=== PATIENT | female | born 1960 | race Caucasian/White ===

== ENCOUNTER 2019-01-30 13:34 | Observation (INO) | payer OTHER ==
[~2019-01-30] VITALS: Ht 165.1 cm; Wt 74.6 kg
[~2019-01-30 13:34] MED LIST: SYMBICORT 160-4.6 GM; Z.0.EFFEXOR75 MG; Z.0.LEVOTHROID50 MCG; Z.0.ZESTRIL5 MG
--- OUTSIDE RECORDS SUMMARY | 2019-01-30 13:37 | XMS REPORT | Encounter Summary ---
Author Organization Unknown Address [address] [place] [address] Phone [phone] Reason for Visit Medical Complaint Instructions 1. Streptococcal sore throat rapid strep group A, throat strep throat: care instructions azithromycin 250 mg tablet Lidocaine Viscous 2 % mucosal solution 2. Body mass index 25-29 - overweight Discussion Note Pt. is NAD. Take medications as prescribed; f/u with PCP within 2-3 days should symptoms worsen as discussed. ER precautions and Care instructions given. Verbalized all instructions. No further questions upon d/c. Plan of Care Patient Instructions Take your antibiotics as directed. Do not stop taking them just because you feel better. You need to take the full course of antibiotics. Strep throat can spread to others until 24 hours after you begin taking antibiotics. During this time, you should avoid contact with other people at work or home, especially infants and children. Do not sneeze or cough on others, and wash your hands often. Keep your drinking glass and eating utensils separate from those of others, and wash these items well in hot, soapy water. Gargle with warm salt water at least once each hour to help reduce swelling and make your throat feel better. Use 1 teaspoon of salt mixed in 8 fluid ounces of warm water. Take an mjql-alj-thmybxk pain medication, such as acetaminophen (Tylenol), ibuprofen (Advil, Motrin), or naproxen (Aleve). Read and follow all instructions on the label. Try an aons-osy-gwqnkwa anesthetic throat spray or throat lozenges, which may help relieve throat pain. Drink plenty of fluids. Fluids may help soothe an irritated throat. Hot fluids, such as tea or soup, may help your throat feel better. Eat soft solids and drink plenty of clear liquids. Flavored ice pops, ice cream, scrambled eggs, sherbet, and gelatin dessert (such as Jell-O) may also soothe the throat. Get lots of rest. Do not smoke, and avoid secondhand smoke. Use a vaporizer or humidifier to add moisture to the air in your bedroom. Follow the directions for cleaning the machine. Reminders Provider Appointments None recorded. Lab Rapid Strep Group a, Throat 10/02/2017 [facility] Referral None recorded. Procedures None recorded. Surgeries None recorded. Imaging None recorded. Medications Name Start Date azithromycin 250 mg tablet TAKE 2 TABLETS (500 MG) BY ORAL ROUTE ONCE DAILY FOR 1 DAY THEN 1 TABLET (250 MG) BY ORAL ROUTE ONCE DAILY FOR 4 DAYS Lidocaine Viscous 2 % mucosal solution Take 15 mL every 3 hours by oral route as needed. Medications Administered None recorded. Vitals Height Weight BMI Blood Pressure 5 ft 5 in 169 lbs 28.1 kg/m2 124/84 mm[Hg] Lab Results Date Name Specimen Result Interpretation Description Value Range Status Address Rapid Strep Group a, Throat Result positive [facility]: [address] [place] [address] Swab Location Left and Right tonsillar pillars [facility]: [address] [place] [address] Allergies Code Code System Name Reaction Severity Status Onset Penicillins Hives Severe Active Problems None recorded. Procedures None recorded. Vaccine List None recorded. Social History Smoking Status Never Smoker Past Encounters 10/02/2017 Streptococcal Sore Throat; Body Mass Index 25-29 - Overweight Savita Garciarhonda, [facility]: [address] [place] [address], Ph. [phone] History of Present Illness Throat-Oral Complaint Reported By: Patient HPI: Location: throat. Quality: sore throat. Severity: moderate. Duration: 1 days. Onset/Timing: sudden. Context: no sick contacts, no foreign travel, non-smoker. Modifying factors: OTC medication. Associated Symptoms: no headache, no body aches, no sputum production, no shortness of breath, no wheezing, no change in number of pillows needed to sleep at night, no sweats, no significant weight gain, no significant weight loss, no morning cough, no vomiting, no diarrhea, no rash, no nausea, fever, sore throat Notes: Reports it hurts to swallow and it is "worst sore throat I've had". No other symptoms reported. Review of Systems:ROS as noted in the HPI Review of Systems Basic Reported By: Patient Physical Exam Adult Basic, Adult Female Complete Reported By: Patient Constitutional: General Appearance: healthy-appearing, well-nourished, well-developed, overweight. Level of Distress: NAD. Ambulation: ambulating normally Psychiatric: Mental Status: active and alert. Orientation: to time, to place, to person Xnj-Nfrh-Qepzl-Throat: Ears: no lesions on external ear, no outer ear tenderness, EACs clear, TMs clear. Hearing: no hearing loss. Nose: no lesions on external nose, nares patent, no septal deviation, nasal passages clear, no sinus tenderness, no nasal discharge. Lips, Teeth, and Gums: no mouth or lip ulcers, no bleeding gums, normal dentition. Oropharynx: moist mucous membranes, no exudates, erythema, tonsils enlarged 1+ Neck: Neck: supple, trachea midline, no masses, FROM. Lymph Nodes: no supraclavicular LAD, anterior cervical LAD Lungs: Respiratory effort: no dyspnea, no tachypnea, no use of accessory muscles, no intercostal retractions. Auscultation: breath sounds normal Cardiovascular: Heart Auscultation: RRR, no murmurs Neurologic: Gait and Station: normal gait, normal station Skin: Inspection and palpation: no rash, no lesions, no ulcer, no abnormal nevi, no induration, no nodules, good turgor, no jaundice; on visible skin
--- OUTSIDE RECORDS SUMMARY | 2019-01-30 13:37 | XMS REPORT | Continuity of Care Document ---
Author Author Scar[place] Address Unknown Phone Unavailable Care Team Providers Care Detective Chief Name Role Phone [employer] Information [employer] Unavailable Unavailable Problems Problem Status Onset Date Classification Date Reported Comments Source Body mass index 25-29 - overweight 10/02/2017 Diagnosis 10/02/2017 [facility] Streptococcal sore throat 10/02/2017 Diagnosis 10/02/2017 [facility] Medications Medication Details Route Status Patient Instructions Ordering Provider Order Date Source Azithromycin 250 MG Oral Tablet azithromycin 250 mg tablet TAKE 2 TABLETS (500 MG) BY ORAL ROUTE ONCE DAILY FOR 1 DAY THEN 1 TABLET (250 MG) BY ORAL ROUTE ONCE DAILY FOR 4 DAYS Active [facility] Lidocaine Hydrochloride 20 MG/ML Mucous Membrane Topical Solution Lidocaine Viscous 2 % mucosal solution Take 15 mL every 3 hours by oral route as needed. Active [facility] Allergies, Adverse Reactions, Alerts Substance Category Reaction Severity Reaction type Status Date Reported Comments Source Penicillins Hives Allergy to substance 10/02/2017 [facility] Immunizations No Data Provided for This Section Results Order Name Results Value Reference Range Date Interpretation Comments Source RESULT positive 10/02/2017 [facility] SWAB LOCATION Left and Right tonsillar pillars 10/02/2017 [facility] Pathology Reports No Data Provided for This Section Diagnostic Reports No Data Provided for This Section Consultation Notes No Data Provided for This Section Discharge Summaries No Data Provided for This Section History and Physicals No Data Provided for This Section Vital Signs Vital Sign Value Date Comments Source Diastolic (mm Hg) 84 10/02/2017 [facility] Height 65 10/02/2017 [facility] Systolic (mm Hg) 124 10/02/2017 [facility] Weight 169 10/02/2017 [facility] Encounters Location Location Details Encounter Type Encounter Number Reason For Visit Attending Provider ADM Date DC Date Status Source [place] - [facility] - [id number] Bailon[facility]: [address], [place] [address], Ph. [phone] [id number] Savita Cunningham 10/02/2017 [facility] Procedures No Data Provided for This Section Assessment and Plan No Data Provided for This Section Plan of Care No Data Provided for This Section Social History Social History Date Source Smoking Status Never Smoker 10/02/2017 [facility] Family History No Data Provided for This Section Advance Directives No Data Provided for This Section Functional Status No Data Provided for This Section
--- OUTSIDE RECORDS SUMMARY | 2019-01-30 13:37 | XMS REPORT | Summary of Care ---
Author Author Jhoana Ortega R.N. Organization Unknown Address Unknown Phone Unavailable Care Team Providers Care Fish Trapper Name Role Phone Jhoana Ortega R.N. Unavailable Unavailable HERNANDEZ N.P., ALEXANDRA Unavailable Unavailable MAGGIE WOODSON, DELIA BRADFORD Unavailable Unavailable MAGGIE Shane, DELIA Unavailable Unavailable HERNANDEZ EMT-C, ALEXANDRA THI Unavailable Unavailable Unavailable Unavailable Functional Status Name Dates Details Functional status health issues are not documented Status: Name Dates Details Cognitive status health issues are not documented Status: Problems Name Dates Details Herpes zoster (053.9, B02.9) Status: Active Thumb pain, left (729.5, M79.645) Status: Active Seasonal allergic rhinitis due to pollen (477.0, J30.1) Status: Active Urinary frequency (788.41, R35.0) Status: Active Upper back pain (724.5, M54.9) Status: Active Low back pain (724.2, M54.5) Status: Active Bilateral edema of lower extremity (782.3, R60.0) Status: Active Essential (primary) hypertension (401.9, I10) Status: Active Hyperlipidemia (272.4, E78.5) Status: Active Asthma (493.90, J45.909) Status: Active Hypothyroidism (244.9, E03.9) Status: Active Headache (784.0, R51) Status: Active Fatigue (780.79, R53.83) Status: Active Polyarthralgia (719.49, M25.50) Status: Active Need for hepatitis C screening test (V73.89, Z11.59) Status: Active Screening for HIV (human immunodeficiency virus) (V73.89, Z11.4) Status: Active Breast cancer screening (V76.10, Z12.39) Status: Active Arthritis (716.90, M19.90) Status: Active GERD (gastroesophageal reflux disease) (530.81, K21.9) Status: Active Need for shingles vaccine (V04.89, Z23) Status: Active Need for Tdap vaccination (V06.1, Z23) Status: Active Allergic rhinitis due to pollen (477.0, J30.1) Status: Active Dysthymic disorder (300.4, F34.1) Status: Active Symptomatic menopausal or female climacteric states (627.2, N95.1) Status: Active Medications Name Dates Details Atenolol 25 MG Oral Tablet TAKE 1 TABLET DAILY Quantity: 90 HERNANDEZ N.P., ALEXANDRA * Start : 26-Jan-2017 Active SUMAtriptan Succinate 100 MG Oral Tablet TAKE ONE TABLET BY MOUTH AT ONSET OF MIGRAINE. MAY REPEAT IN 2 HOURS IF NEEDED. MAXIMUM OF 2 TABLETS PER DAY. * Quantity: 30 Refills: 0 HERNANDEZ N.P., ALEXANDRA * Start : 01-Apr-2016 Active Montelukast Sodium 10 MG Oral Tablet TAKE 1 TABLET DAILY. * Quantity: 90 Refills: 1 HERNANDEZ N.P., ALEXANDRA * Start : 28-Nov-2016 Active Acetaminophen-Codeine #3 300-30 MG Oral Tablet TAKE ONE (1) TABLET(S) BY MOUTH EVERY SIX HOURS NEEDED FOR PAIN. * Quantity: 30 Refills: 1 HERNADNEZ N.P., ALEXANDRA * Start : 05-Feb-2017 Active Celecoxib 200 MG Oral Capsule Take one (1) capsule(s) BY MOUTH daily. * Quantity: 90 Refills: 1 HERNANDEZ N.P., ALEXANDRA * Start : 17-Mar-2017 Active buPROPion HCl ER (XL) 300 MG Oral Tablet Extended Release 24 Hour Take one (1) tablet(s) by mouth daily. * Quantity: 90 Refills: 1 HERNANDEZ N.P., ALEXANDRA * Start : 26-Mar-2017 Active Gabapentin 300 MG Oral Capsule TAKE ONE CAPSULE BY MOUTH TWO TO THREE TIMES DAILY. * Quantity: 270 Refills: 1 HERNANDEZ N.P., ALEXANDRA * Start : 10-Nov-2017 Active Levothyroxine Sodium 137 MCG Oral Tablet TAKE 1 TABLET DAILY. * Quantity: 90 Refills: 1 HERNANDEZ N.P., ALEXANDRA * Start : 11-Aug-2018 Active Omeprazole 40 MG Oral Capsule Delayed Release * Refills: 0 HERNANDEZ N.P., ALEXANDRA * Start : 06-Jan-2019 Active Shingrix 50 MCG Intramuscular Suspension Reconstituted INJECT 50 MCG Once * Quantity: 1 Refills: 1 HERNANDEZ N.P., ALEXANDRA * Start : 06-Jan-2019 Active Tdap INJECT 0.5 ML Intramuscular * Quantity: 1 Refills: 0 HERNANDEZ N.P., ALEXANDRA * Start : 06-Jan-2019 Active Allergies and Adverse Reactions Name Dates Details Penicillins (Allergy) Status: Active Past Medical History Name Dates Details History of backache (V13.59, Z87.39) Status: Resolved History of Dysthymic Disorder (V11.2) Status: Resolved History of sciatica (V12.49, Z86.69) Status: Resolved Procedures Procedure Dates Details [QLH] TSH, 3RD GENERATION W/REFLEX TO FT4 Date: 10-Jan-2019 [place] Breast mammogram screen bilateral 37[address] Date: 06-Jan-2019 History of Hysterectomy Completed History of Cholecystectomy Completed Immunization Name Dates Details Immunizations not documented Family History Name Dates Details Family history of Chronic Obstructive Pulmonary Disease Status: Active Name Dates Details Family history of Acute Myocardial Infarction (V17.3) Status: Active Social History Name Dates Details - Status: Name Dates Details Never smoker Vital Signs Date Test Result Details :43 BP Systolic 114 mm[Hg] Status: Comments: Location: LUE; Position: Sitting BP Diastolic 77 mm[Hg] Status: Comments: Location: LUE; Position: Sitting Height 63.5 in Status: Weight 164 lb Status: Body Mass Index Calculated 28.6 kg/m2 Status: Body Surface Area Calculated 1.79 m2 Status: Temperature 97.5 f Status: Heart Rate 77 /min Status: Respiration Rate 16 /min Status: Physical Findings 0 Status: Comments: Alcohol Screen - How many times in the past yr have you had 5 (for M) or 4 (for F) or 4 (for all > 65yrs) or more drinks in a day? Results Date Description Value Details 51-[id number]:40 [Q] HIV-1/2 Antigen and Antibodies, Fourth Generation, with Reflexes HIV AG/AB, 4TH GEN NON-REACTIVE (Normal) Range: NON-REACTIVE Comments: HIV-1 antigen and HIV-1/HIV-2 antibodies were notdetected. There is no laboratory evidence of HIVinfection. PLEASE NOTE: This information has been disclosed toyou from records whose confidentiality may beprotected by state law. If your state requires suchprotection, then the state law prohibits you frommaking any further disclosure of the informationwithout the specific written consent of the personto whom it pertains, or as otherwise permitted by law.A general authorization for the release of medical orother information is NOT sufficient for this purpose. For additional information please refer t ohttp://[employer] Box/faq/SXM015(This link is being provided for informational/educational purposes only.) The performance of this assay has not been clinicallyvalidated in patients less than 2 years old. :40 [QLH] HEPATITIS C ANTIBODY HEPATITIS C ANTIBODY NON-REACTIVE (Normal) Range: NON-REACTIVE SIGNAL TO CUT-OFF 0.01 (Normal) Range: <1.00 Comments: HCV antibody was non-reactive. There is no laboratory evidence of HCV infection. In most cases, no further action is required. However,if recent HCV exposure is suspected, a test for HCV RNA(test code 69565) is suggested. For additional information please refer tohttp://[employer]/faq/QFO90y4(This link is being provided for informational/educational purposes only.) :40 [QL] TSH, 3RD GENERATION W/REFLEX TO FT4 TSH, 3RD GENERATION W/REFLEX TO FT4 18.29 {MIU/L} (Above high threshold) Range: 0.40-4.50 :40 [QL] T4, FREE T4, FREE 1.2 ng/dl (Normal) Range: 0.8-1.8 :40 [[facility]] VITAMIN D, 25-HYDROXY, LC/MS/MS Comments: REPORT COMMENT:FASTING:NO VITAMIN D,25-OH,TOTAL,IA 34 ng/ml (Normal) Range: 30-100 Comments: Vitamin D Status 25-OH Vitamin D: Deficiency: <20 ng/mLInsufficiency: 20 - 29 ng/mLOptimal: > or=30 ng/mL For 25-OH Vitamin D testing on patients on D2-supplementation and patients for whom quantitation of D2 and D3 fractions is required, the QuestAssureD(TM)25-OH VIT D, (D2,D3), LC/MS/MS is recommended: order code 69702 (patients >2yrs). For more information on this test, go to:http://education.[employer]/faq/LNJ670(This link is being provided for informational/educational purposes only.) Plan of Care Name Dates Details Planned Observations Planned Goals not documented Instructions Name Dates Details Instructions not documented Encounters Appointment; ALEXANDRA HERNANDEZ EMT Encounter Diagnosis: Problem not documented On: 05-Feb-2017 10:30 Appointment; ALEXANDRA HERNANDEZ NP Encounter Diagnosis: Problem not documented On: 26-Mar-2017 13:00 Appointment; ALEXANDRA HERNANDEZ NP Encounter Diagnosis: Problem not documented On: 03-Aug-2017 12:00 Appointment; ALEXANDRA HERNANDEZ NP Encounter Diagnosis: Problem not documented On: 20-Oct-2017 15:30 Appointment; ALEXANDRA HERNANDEZ NP Encounter Diagnosis: Problem not documented On: 20-Jan-2018 13:30 Appointment; ALEXANDRA HERNANDEZ NP Encounter Diagnosis: Problem not documented On: 24-May-2018 11:45 Appointment; ALEXANDRA HERNANDEZ NP Encounter Diagnosis: Problem not documented On: 06-Jan-2019 8:30
[2019-01-30] MEDS ORDERED: ASPIRIN 81 MG CHEW TAB PO ONE (14:15)
[2019-01-30 14:32] LABS: BASOPHILS # (AUTO) 0.1 (0.0-0.1); BASOPHILS % 0.8 % (0.0-1.0); EOSINOPHILS # (AUTO) 0.1 (0.0-0.4); EOSINOPHILS % 1.7 % (0.0-6.0); HEMATOCRIT 39.3 % (34.2-44.1); LYMPHOCYTES # (AUTO) 1.9 (1.0-3.2); LYMPHOCYTES % 29.9 % (18.0-39.1); MEAN CORPUSCULAR HEMOGLOBIN 29.5 pg (28-32); MEAN CORPUSCULAR HGB CONC 33.1 g/dL (31-35); MEAN CORPUSCULAR VOLUME 89.3 fL (81-99); MONOCYTES # (AUTO) 0.6 (0.2-0.8); MONOCYTES % 9.5 % (4.4-11.3); NEUTROPHILS # (AUTO) 3.6 (2.1-6.9); NEUTROPHILS % 57.5 % (38.7-80.0); PLATELET COUNT 283 x10e3/uL (140-360); RED CELL DISTRIBUTION WIDTH 13.4 % (11.7-14.4)
[2019-01-30 14:35] LABS: INR 0.89; PROTHROMBIN TIME 12.5 seconds (11.9-14.5)
[2019-01-30 14:36] LABS: PARTIAL THROMBOPLASTIN TIME 24.3 seconds (23.8-35.5)
[2019-01-30 14:43] LABS: ALANINE AMINOTRANSFERASE 18 IU/L (0-55); ALBUMIN 3.9 g/dL (3.5-5.0); ALBUMIN/GLOBULIN RATIO 1.1 (0.8-2.0); ALKALINE PHOSPHATASE 68 IU/L (40-150); ANION GAP 13.5 mmol/L (8-16); BLOOD UREA NITROGEN 17 mg/dL (7-26); BUN/CREATININE RATIO 18 (6-25); CALCIUM 9.8 mg/dL (8.4-10.2); CARBON DIOXIDE 27 mmol/L (22-29); CHLORIDE 105 mmol/L (98-107); CHOL/HDL RATIO 3.1 (3.0-3.6); CHOLESTEROL 206 MD/DL (0-199); CREATINE KINASE 59 IU/L (29-168); CREATININE, SERUM 0.95 mg/dL (0.57-1.11); EST GLOMERULAR FILTRATION RATE 60 ML/MIN (60-); GLUCOSE 104 mg/dL (74-118); HDL CHOLESTEROL 66 MG/DL (40-60); LDL CHOLESTEROL 122 MG/DL (60-130); MAGNESIUM 2.6 MG/DL (1.3-2.1); POTASSIUM 3.5 mmol/L (3.5-5.1); SODIUM 142 mmol/L (136-145); TRIGLYCERIDES 91 MG/DL (0-149)
--- NOTE | 2019-01-30 14:43 | Diagnostic Imaging Report ---
EXAMINATION: PA and lateral views of the chest. COMPARISON: None CLINICAL HISTORY: Chest pain DISCUSSION: Lines/tubes: None. Lungs: The lungs are well inflated and clear. There is no evidence of pneumonia or pulmonary edema. Pleura: There is no pleural effusion or pneumothorax. Heart and mediastinum: Cardiomediastinal silhouette is unremarkable. Pulmonary vasculature is normal. Bones and soft tissues: No acute bony abnormalities. Mild age appropriate degenerative changes in the thoracic spine IMPRESSION: No acute cardiopulmonary abnormalities. Signed by: Dr. Zaheer Chapin M.D. on 01/30/2019 2:39 PM
[2019-01-30 16:16] LABS: BILIRUBIN,URINE NEGATIVE (NEGATIVE); CLARITY,URINE CLEAR (CLEAR); COLOR,URINE YELLOW (YELLOW); KETONES,URINE NEGATIVE (NEGATIVE); LEUKOCYTE ESTERASE ,URINE NEGATIVE (NEGATIVE); NITRITE,URINE NEGATIVE (NEGATIVE); PROTEIN,URINE DIPSTICK NEGATIVE (NEGATIVE); URINE UROBILINOGEN 0.2 mg/dL (0.2 - 1)
[2019-01-30 16:45] LABS: BACTERIA,URINE FEW /HPF; EPITHELIAL CELLS,URINE RARE /LPF; WBC,URINE (MAN) 0-5 /HPF (0-5)
[2019-01-30 16:46] LABS: MUCUS,URINE FEW (RARE)
[2019-01-30] MEDS ORDERED: NITROGLYCERIN 0.4 MG SUBL SL PRN (17:15)
[2019-01-30] MEDS ORDERED: ONDANSETRON HCL INJ 2MG/ML 2ML 2 MG/ML VIAL IV PRN (17:15)
[2019-01-30] MEDS ORDERED: MORPHINE SULFATE 2 MG/ML SYR 1ML IV PRN (17:15)
--- OUTSIDE RECORDS SUMMARY | 2019-01-30 17:58 | XMS REPORT ---
Author [facility] Address Unknown Phone Unavailable Care Team Providers Care Gas Engineer Name Role Phone Kate KEITH Unavailable Unavailable Problems This patient has no known problems. Allergies, Adverse Reactions, Alerts This patient has no known allergies or adverse reactions. Medications This patient has no known medications. Results Test Description Test Time Test Comments Text Results Atomic Results Result Comments CHEST 2 VIEWS 2019-01-30 14:39:00 [place] [address] Patient Name: MAYLIN MACHADO MR #: [id number] : 1960 Age/Sex: 58/F Req #: [id number] Adm Physician: Ordered by: ERIC MOORE ELEMENTARY SUPERVISOR Report #: [id number] Location: ER Room/Bed: Procedure: [id number] DX/CHEST 2 VIEWS Exam Date: 01/30/19 Exam Time: 1404 REPORT STATUS: Signed EXAMINATION: PA and lateral views of the chest. CO MPARISON: None CLINICAL HISTORY: Chest pain DISCUSSION: Lines/tubes: None. Lungs: The lungs are well inflated and clear. There is no evidence of pneumonia or pulmonary edema. Pleura: There is no pleural effusion or pneumothorax. Heart and mediastinum: Cardiomediastinal silhouette is unremarkable. Pulmonary vasculature is normal. Bones and soft tissues: No acute bony abnormalities. Mild age appropriate degenerative changes in the thoracic spine IMPRESSION: No acute cardiopulmonary abnormalities. Signed by: Dr. Iftikhar Chapin M.D. on 01/30/2019 2:39 PM Dictated By: IFTIKHAR CHAPIN MD 1439 Transcribed By: LORRAINE on 01/30/19 1439 COPY TO: ERIC MOORE NP
--- OUTSIDE RECORDS SUMMARY | 2019-01-30 17:58 | XMS REPORT | Summary of Care ---
Author Author Tisha Salazar R.N. Organization Unknown Address Unknown Phone Unavailable Care Team Providers Care Machinery Engineer Name Role Phone HERNANDEZ N.P., ALEXANDRA Unavailable Unavailable Marie Tapia, Tisha Unavailable Unavailable MAGGIE WOODSON, DELIA BRADFORD Unavailable Unavailable MAGGIE Shane, DELIA Gomez Unavailable HERNANDEZ STOCK RAISER-C, ALEAXNDRA THI Unavailable Unavailable Unavailable Unavailable Functional Status [...] PER DAY. * Quantity: 30 Refills: 0 HERANNDEZ N.P., ALEXANDRA * Start : 01-Apr-2016 Active Montelukast Sodium 10 MG Oral Tablet TAKE 1 TABLET DAILY. * Quantity: 90 Refills: 1 HERNANDEZ N.P., ALEXANDRA * Start : 28-Nov-2016 Active Acetaminophen-Codeine #3 300-30 MG Oral Tablet TAKE ONE (1) TABLET(S) BY MOUTH EVERY SIX HOURS NEEDED FOR PAIN. * Quantity: 30 Refills: 1 HERNANDEZ N.P., ALEXANDRA * Start : 05-Feb-2017 Active [...] Date: 10-Jan-2019 [place] [id number] Date: 06-Jan-2019 History of Hysterectomy Completed History of Cholecystectomy Completed Immunization Name Dates Details Immunizations not documented Family History Name Dates Details Family history of Chronic Obstructive Pulmonary Disease Status: Active Name Dates Details Family history of Acute Myocardial Infarction (V17.3) Status: Active Social History Name Dates Details - Status: Name Dates Details Never smoker Vital Signs Date Test Result Details 62-Gtx-73480:43 BP Systolic 114 mm[Hg] Status: Comments: Location: [...] a day? Results Date Description Value Details 93-Wxr-35212:40 [Q] HIV-1/2 Antigen and Antibodies, Fourth Generation, [...] purpose. For additional information please refer t ohttp://[employer]rax/faq/KMX659(This link is being provided for informational/educational purposes [...] suspected, a test for HCV RNA(test code 23563) is suggested. For additional information please refer tohttp://[employer]rax/faq/YBP87u9(This link is being provided for informational/educational purposes only.) :40 [QL] TSH, 3RD GENERATION W/REFLEX TO FT4 TSH, 3RD GENERATION W/REFLEX TO FT4 18.29 {MIU/L} (Above high threshold) Range: 0.40-4.50 :40 [QL] T4, FREE T4, FREE 1.2 ng/dl (Normal) Range: 0.8-1.8 :40 [facility] VITAMIN D, 25-HYDROXY, LC/MS/MS Comments: REPORT COMMENT:FASTING:NO VITAMIN D,25-OH,TOTAL,IA 34 ng/ml (Normal) Range: 30-100 Comments: Vitamin D Status 25-OH Vitamin D: Deficiency: <20 ng/mLInsufficiency: 20 - 29 ng/mLOptimal: > or=30 ng/mL For 25-OH Vitamin D testing on patients on D2-supplementation and patients for whom quantitation of D2 and D3 fractions is required, the QuestAssureD(TM)25-OH VIT D, (D2,D3), LC/MS/MS is recommended: order code 26574 (patients >2yrs). For more information on this test, go to:http://education.mytrax/faq/APL274(This link is being provided for informational/educational purposes only.) Plan of Care Name Dates Details Planned Observations Planned Goals not documented Interventions Provided Discussion/Summary* Guideline Used: * [facility] calling for ED doctor Dr. Martinez, wants to consult with Dr. Neumann regarding pt. Pt came to the ED for chest pain. * CB: [phone] * Chart review done. * Intended Caller Action: * Other: Speak with clinic staff * Additional Information: * Reading text sent and received by Dr. Neumann. Instructions Name Dates Details Instructions not documented Encounters Appointment; ALEXANDRA HERNANDEZ, STOCK RAISER Encounter Diagnosis: Problem not documented On: 05-Feb-2017 10:30 Appointment; ALEXANDRA HERNANDEZ, STOCK RAISER Encounter Diagnosis: Problem not documented On: 26-Mar-2017 13:00 Appointment; ALEXANDRA HERNANDEZ, STOCK RAISER Encounter Diagnosis: Problem not documented On: 03-Aug-2017 12:00 Appointment; ALEXANDRA HERNANDEZ, STOCK RAISER Encounter Diagnosis: Problem not documented On: 20-Oct-2017 15:30 Appointment; ALEXANDRA HERNANDEZ, STOCK RAISER Encounter Diagnosis: Problem not documented On: 20-Jan-2018 13:30 Appointment; ALEXANDRA HERNANDEZ, STOCK RAISER Encounter Diagnosis: Problem not documented On: 24-May-2018 11:45 Appointment; ALEXANDRA HERNANDEZ, STOCK RAISER Encounter Diagnosis: Problem not documented On: 06-Jan-2019 8:30
--- OUTSIDE RECORDS SUMMARY | 2019-01-30 17:58 | XMS REPORT | Continuity of Care Document ---
Author Author [facility] Address Unknown Phone Unavailable Care Team Providers Care Packer Name Role Phone [employer] Unavailable Unavailable Problems Problem Status Onset Date [...] Date Status Source [place] - [facility] - [id number] Bailon[facility]: [address], [place] [address], Ph. [phone] Savita Cunningham 10/02/2017 [facility] Procedures No Data [...]
[2019-01-30] MEDS: ASPIRIN 81 MG ENTERIC COATED PO SCH (18:06)
[2019-01-30] MEDS: FAMOTIDINE 20 MG/2 ML VIAL IV SCH (21:11)
--- NOTE | 2019-01-30 21:15 | NUR ---
PT CONTINUES TO DENY COVERAGE WITH PAIN MEDICATION FOR HER INTERMITTENT CP AT THIS TIME, RATED 5/10 AT THIS TIME.
[2019-01-30 22:40] LABS: CREATINE KINASE 56 IU/L (29-168)
--- NOTE | 2019-01-30 23:43 | NUR ---
REPORT GIVEN TO JADEN FRYE.
[2019-01-31] VITALS (8 sets, daily range): BP systolic 98–140; BP diastolic 61–89
--- NOTE | 2019-01-31 01:15 | NUR ---
Received to 188 from ER. Placed on EKG, pulse ox and NBP for monitoring. Admission history, Initial admission assessment & family history done. See interventions.
[2019-01-31] MEDS ORDERED: TENORMIN50 MG (01:36)
[2019-01-31] MEDS ORDERED: SINGULAIR10 MG PO (01:36)
[2019-01-31] MEDS ORDERED: CELEBREX100 MG PO (01:36)
--- NOTE | 2019-01-31 02:43 | NUR ---
Medicated for c/o pain.
[2019-01-31 06:51] LABS: BASOPHILS % 0.6 % (0.0-1.0); EOSINOPHILS # (AUTO) 0.1 (0.0-0.4); EOSINOPHILS % 1.3 % (0.0-6.0); HEMATOCRIT 38.5 % (34.2-44.1); HEMOGLOBIN 12.5 g/dL (12.0-16.0); LYMPHOCYTES # (AUTO) 2.1 (1.0-3.2); LYMPHOCYTES % 29.2 % (18.0-39.1); MEAN CORPUSCULAR HEMOGLOBIN 29.2 pg (28-32); MEAN CORPUSCULAR HGB CONC 32.5 g/dL (31-35); MONOCYTES # (AUTO) 0.7 (0.2-0.8); NEUTROPHILS # (AUTO) 4.2 (2.1-6.9); NEUTROPHILS % 58.5 % (38.7-80.0); PLATELET COUNT 260 x10e3/uL (140-360); RED BLOOD COUNT 4.28 x10e6/uL (3.6-5.1); RED CELL DISTRIBUTION WIDTH 13.5 % (11.7-14.4)
[2019-01-31 07:14] LABS: ALANINE AMINOTRANSFERASE 20 IU/L (0-55); ALBUMIN 3.5 g/dL (3.5-5.0); ALBUMIN/GLOBULIN RATIO 1.1 (0.8-2.0); ALKALINE PHOSPHATASE 62 IU/L (40-150); ANION GAP 12.4 mmol/L (8-16); BLOOD UREA NITROGEN 14 mg/dL (7-26); BUN/CREATININE RATIO 17 (6-25); CALCIUM 9.3 mg/dL (8.4-10.2); CARBON DIOXIDE 26 mmol/L (22-29); CHLORIDE 104 mmol/L (98-107); CHOL/HDL RATIO 3.4 (3.0-3.6); CHOLESTEROL 182 MD/DL (0-199); CREATINE KINASE 45 IU/L (29-168); CREATININE, SERUM 0.81 mg/dL (0.57-1.11); EST GLOMERULAR FILTRATION RATE > 60 ML/MIN (60-); GLUCOSE 102 mg/dL (74-118); HDL CHOLESTEROL 53 MG/DL (40-60); LDL CHOLESTEROL 103 MG/DL (60-130); POTASSIUM 3.4 mmol/L (3.5-5.1); SODIUM 139 mmol/L (136-145); TRIGLYCERIDES 128 MG/DL (0-149)
[2019-01-31] MEDS: FAMOTIDINE 20 MG/2 ML VIAL IV SCH ×2 (09:09→19:00)
[2019-01-31] MEDS: ASPIRIN 81 MG ENTERIC COATED PO SCH (09:09)
--- NOTE | 2019-01-31 09:44 | NUR ---
pt vs stable, no c/o of CP. both MD on unit at this time.
[2019-01-31] MEDS ORDERED: ONDANSETRON HCL 4 MG ORAL DISINTEGRATING TAB PO PRN (09:45)
--- NOTE | 2019-01-31 09:45 | NUR ---
per , pt daughter ok to give her OTC benadryl
[2019-01-31] MEDS ORDERED: POTASSIUM CHLORIDE 20 MEQ TAB CR PO ONE (10:00)
[2019-01-31] MEDS ORDERED: ACETAMINOPHEN 325 MG TAB PO PRN (10:00)
[2019-01-31] MEDS ORDERED: REGADENOSON 0.4 MG/5 ML SYR IV ONE (10:25)
[2019-01-31] MEDS ORDERED: IBUPROFEN 600 MG TAB PO ONE (10:30)
--- NOTE | 2019-01-31 12:09 | NUR ---
pt off unit for stress test
--- NOTE | 2019-01-31 12:57 | Consultation ---
DATE OF CONSULTATION: 01/31/2019 Cardiology Consultation Ms. Araujo is a charming 58-year-old woman, who presented to the emergency room on the with a complaint of chest discomfort. HISTORY OF PRESENT ILLNESS: The patient reports there has been intermittent discomfort in the anterior chest wall and has been heaviness in character. She reports she did take some ibuprofen yesterday morning, but decided to come to the emergency room when it recurred again. PAST MEDICAL HISTORY: Significant for hypertension and palpitations. She takes atenolol at home. She also takes Effexor and levothyroxine. Reports she does not use her inhaler as it "makes her heart rate faster." PERSONAL AND SOCIAL HISTORY: She does not smoke. PHYSICAL EXAMINATION: GENERAL: At this time shows a pleasant, alert lady, who is anxious. VITAL SIGNS: Blood pressure 98/61, pulse is 80 and regular. HEAD, EYES, EARS, NOSE, AND THROAT: Unremarkable. NECK: No jugular venous distention. THORAX: Chest wall tender to palpation throughout the precordium. Heart sounds S1, S2 are equal. No murmurs. LUNGS: Clear. ABDOMEN: Protuberant. EXTREMITIES: No cyanosis, clubbing, or edema. LABORATORY DATA: EKG shows sinus rhythm and anterior T-wave inversions. Cardiac enzymes are normal x3. CBC is unremarkable. Chest x-ray is unremarkable. ASSESSMENT: 1. Costochondritis. 2. Abnormal EKG showing anterior T-wave inversions. 3. History of mitral valve prolapse and hypertension. PLAN: We will check Cardiolite today and give one dose of ibuprofen to see if it can provide some benefit. She says her mental status changes after she is given prednisone. MD PIPO Fry/RYAN /[id number] cc: Mat Acuña
[2019-01-31 14:51] LABS: CREATINE KINASE 46 IU/L (29-168)
[2019-01-31] MEDS ORDERED: MONTELUKAST SODIUM 10 MG TAB PO SCH (17:00)
--- NOTE | 2019-01-31 18:02 | NUR ---
pt cleared for dc by khris webb MD
--- NOTE | 2019-01-31 20:04 | NUR ---
PATIENT IS ALERT AND ORIENTED X3, NO RESPIRATORY DISTRESS OBSERVED. SKIN INTEGRITY INTACT, BRUISES TO THE ARMS. NO EDEMA NOTED TO THE EXTREMITIES, PATIENT DENIES CHEST PAIN. SHE HAS DISCHARGE ORDER FOR TONIGHT. DISCHARGED INSTRUCTIONS AND F/U GIVEN, SHE VERBALIZED UNDERSTANDING. IV WAS NOTED LEAKING WHILE FLUSHING TO ADMINISTER IV PEPCID. IV REMOVED WITH TIP INTACT, ALL PERSONAL ITEMS WITH THE PATIENT, SHE'S AWAITING HER SISTER FOR TRANSPORTATION TO HOME.
--- NOTE | 2019-01-31 20:15 | NUR ---
PATIENT IS DISCHARGED TO HOME, ALL PERSONAL ITEMS TAKEN WITH THE PATIENT. LEFT UNIT PER WHEELCHAIR TO THE FRONT LOBBY IN STABLE CONDITION.
--- NOTE | 2019-01-31 20:19 | Myoview Stress Test ---
DATE OF STUDY: 01/31/2019 00:00:00 Stress Test - Treadmill ONLY The patient had resting perfusion images after injection of 10.9 mCi of technetium-99m Myoview. Later due to inability to exercise, she is given Lexiscan 0.4 mg intravenously and shortly afterwards 32 mCi of technetium-99m Myoview. Perfusion images were taken by rotational tomography. Conversion resting on Lexiscan stress images show no evidence of any perfusion defect. Additionally, gated wall motion images were obtained and calculated ejection fraction normal at 76%. FINAL IMPRESSIONS: 1. Normal Lexiscan Myoview for perfusion. 2. Normal left ventricular function with calculated ejection fraction of 76%. MD PIPO Fry/MODL /[id number] cc: Jose Neumann MD
[2019-02-01] MEDS ORDERED: LEVOTHYROXINE SODIUM 125 MCG TAB PO SCH (06:00)
[2019-02-01] MEDS ORDERED: BUPROPION HCL SR 150 MG TAB PO SCH (09:00)
[2019-02-01] MEDS ORDERED: ATENOLOL 50 MG TAB PO SCH (09:00)
== END 2019-01-31 20:15 | disposition home or self-care (01) ==
LOC: ER 13:34 → ERHOLD 17:08 → IMCU 01-31 01:15
PROVIDERS: ADMIT Internal Medicine; ATTEND Internal Medicine
DX: M94.0 Chondrocostal junction syndrome [Tietze] (principal); Z88.0 Allergy status to penicillin; M79.7 Fibromyalgia; K21.9 Gastro-esophageal reflux disease without esophagitis; F41.9 Anxiety disorder, unspecified; R94.31 Abnormal electrocardiogram [ECG] [EKG]; I34.1 Nonrheumatic mitral (valve) prolapse; I10 Essential (primary) hypertension
CPT/HCPCS: 36415 ×2; 71046; 78452; 80053 ×2; 80061 ×2; 81001; 82550 ×2; 82553 ×2; 83735; 83880; 84484 ×2; 85025 ×2; 85610; 85730; 93005; 93017; 93306; 99284; A9502; G0378 ×2; J2270; J2785